=== PATIENT | male | born 1965 | race Two or more races ===

== ENCOUNTER 2022-11-30 12:08 | Emergency (ER) | payer OTHER ==
[~2022-11-30] VITALS: Ht 170.2 cm; Wt 70.8 kg
[2022-11-30] MEDS ORDERED: TRAZODONE HCL100 MG PO (12:43)
[2022-11-30] MEDS ORDERED: ZIPSOR25 MG (12:43)
[2022-11-30 14:10] LABS: HEMATOCRIT 43.1 % (39.0-48.0); HEMOGLOBIN 14.5 g/dL (13-16.00); MEAN CELL VOLUME 93.7 fL (80.0-100.00); MEAN CORPUSCULAR HEMOGLOBIN 31.4 pg (27.00-32.0); MEAN CORPUSCULAR HGB CONC 33.5 g/dl (32.0-36.0); PLATELET COUNT 142 K/uL (150-450); RED CELL DISTRIBUTION WIDTH 13.4 % (11.5-14.5)
[2022-11-30 14:31] LABS: CALCIUM 8.9 mg/dL (8.5-10.1); CREATININE SERUM 1.36 mg/dL (0.70-1.30); GFR 53.82; POTASSIUM 4.65 mEq/L (3.5-5.1)
== END 2022-11-30 15:59 | disposition home or self-care (01) ==
LOC: ER 12:08
PROVIDERS: General Practice
DX: M79.662 Pain in left lower leg (principal); Z88.2 Allergy status to sulfonamides; M32.8 Other forms of systemic lupus erythematosus
CPT/HCPCS: 36415; 93971; 96372; 99284; J1885

== ENCOUNTER 2024-03-02 12:32 | Emergency (ER) | payer OTHER ==
[~2024-03-02] VITALS: Ht 170.2 cm; Wt 69.9 kg
[~2024-03-02 12:32] MED LIST: TRAZODONE HCL100 MG PO; ZIPSOR25 MG
[2024-03-02] MEDS ORDERED: CLONAZEPAM2 MG PO (12:58)
[2024-03-02] MEDS ORDERED: GUAIFENESIN/DEXTROMETHORPHAN 10ML BLIST.PACK PO ONE (15:45)
[2024-03-02] MEDS ORDERED: METHYLPREDNISOLONE SOD SUCC 125 MG VIAL IV ONE (15:45)
[2024-03-02] MEDS ORDERED: IPRATROPIUM/ALBUTEROL SULFATE 3 ML AMPUL.NEB IH SCH (15:45)
[2024-03-02] MEDS ORDERED: ACETAMINOPHEN 500 MG GEL..CAP PO ONE ×2 (16:00→16:16)
[2024-03-02] MEDS ORDERED: 0.9 % SODIUM CHLORIDE 1,000 ML IV ONE (16:15)
[2024-03-02] MEDS ORDERED: METHYLPREDNISOLONE SOD SUCC 125 MG VIAL ONE (16:17)
[2024-03-02] MEDS ORDERED: GUAIFEN/DEXTROMETHORPHAN/PE 10 ML BLIST.PACK PO ONE (16:17)
[2024-03-02] MEDS ORDERED: IPRATROPIUM/ALBUTEROL SULFATE 3 ML AMPUL.NEB IH ONE (17:14)
[2024-03-02 18:24] LABS: HEMATOCRIT 45.4 % (39.0-48.0); HEMOGLOBIN 14.8 g/dL (13-16.00); MEAN CELL VOLUME 95.5 fL (80.0-100.00); MEAN CORPUSCULAR HEMOGLOBIN 31.1 pg (27.00-32.0); MEAN CORPUSCULAR HGB CONC 32.5 g/dl (32.0-36.0); RED BLOOD COUNT 4.76 M/uL (4.00-6.00); RED CELL DISTRIBUTION WIDTH 14.1 % (11.5-14.5)
[2024-03-02 18:42] LABS: PLATELET COUNT 115 K/uL (150-450)
[2024-03-02 18:47] LABS: CALCIUM 9.3 mg/dL (8.5-10.1); CREATININE SERUM 1.3 mg/dL (0.70-1.30); GFR 56.31; POTASSIUM 4.51 mEq/L (3.5-5.1)
[2024-03-02 18:55] LABS: ABG PO2 76.7 mmHg (80-100); ABG pCO2 40.8 mmHg (35-45); BASE EXCESS -0.1 mmol/l; BICARBONATE 24.7 mmol/l (23-25); SaO2 95.2 %; Tco2 25.9 mmol/l; allen test SATISFACTORY; o2 21 %; puncture site RADIAL RIGHT
[2024-03-02] MEDS ORDERED: ZITHROMAX500 MG PO (19:41)
[2024-03-02] MEDS ORDERED: SINGULAIR10 MG PO (19:41)
[2024-03-02] MEDS ORDERED: MEDROLPACK PO (19:41)
[2024-03-02] MEDS ORDERED: IPRATROPIU0.2 MG/1 M IH (19:41)
[2024-03-02] MEDS ORDERED: ALBUTEROL1.25 MG/3 IH (19:41)
[2024-03-02] MEDS ORDERED: TUSSIN DM LIQU118 ML PO (19:41)
[2024-03-02] MEDS ORDERED: MAG HYDROX/ALUMINUM HYD/SIMETH 30 ML BLIST.PACK PO ONE ×2 (19:58→20:00)
[2024-03-02] MEDS ORDERED: LIDOCAINE HCL VISCOUS 20MG/ML BLIST 15ML MM ONE ×2 (19:58→20:00)
== END 2024-03-02 20:10 ==
LOC: ER 12:35
PROVIDERS: General Practice
DX: J06.9 Acute upper respiratory infection, unspecified (principal); Z88.2 Allergy status to sulfonamides; J45.909 Unspecified asthma, uncomplicated; M32.8 Other forms of systemic lupus erythematosus; Z20.822 Contact with and (suspected) exposure to COVID-19
CPT/HCPCS: 36415; 71046; 82803; 94640; 96365; 99284; J3490

== ENCOUNTER 2024-03-05 15:26 | Inpatient (IN) | payer OTHER ==
[~2024-03-05] VITALS: Ht 170.2 cm; Wt 69.9 kg
[~2024-03-05 15:26] MED LIST changes: +ALBUTEROL1.25 MG/3 IH; +CLONAZEPAM2 MG PO; +IPRATROPIU0.2 MG/1 M IH; +MEDROLPACK PO; +SINGULAIR10 MG PO; +TUSSIN DM LIQU118 ML PO; +ZITHROMAX500 MG PO
[2024-03-05] MEDS ORDERED: IPRATROPIUM/ALBUTEROL SULFATE 3 ML AMPUL.NEB IH SCH (18:00)
[2024-03-05] MEDS ORDERED: IPRATROPIUM/ALBUTEROL SULFATE 3 ML AMPUL.NEB IH ONE (18:07)
[2024-03-05 18:15] LABS: HEMATOCRIT 42.8 % (39.0-48.0); HEMOGLOBIN 14.6 g/dL (13-16.00); MEAN CELL VOLUME 92.7 fL (80.0-100.00); MEAN CORPUSCULAR HEMOGLOBIN 31.7 pg (27.00-32.0); MEAN CORPUSCULAR HGB CONC 34.2 g/dl (32.0-36.0); RED BLOOD COUNT 4.62 M/uL (4.00-6.00); RED CELL DISTRIBUTION WIDTH 13.9 % (11.5-14.5)
[2024-03-05 18:18] LABS: PLATELET COUNT 118 K/uL (150-450)
[2024-03-05] MEDS ORDERED: BENZONATATE 200 MG CAPSULE PO ONE (18:30)
[2024-03-05] MEDS ORDERED: CEFTRIAXONE SODIUM 2,000 MG in 0.9 % SODIUM CHLORIDE 100 ML IV SCH (19:38)
[2024-03-05] MEDS ORDERED: AZITHROMYCIN 500 MG in DEXTROSE 5 % IN WATER 250 ML IV SCH (19:38)
[2024-03-05] MEDS ORDERED: ACETAMINOPHEN 500 MG GEL..CAP PO PRN (19:45)
[2024-03-05] MEDS ORDERED: 0.9 % SODIUM CHLORIDE 1,000 ML IV SCH (19:45)
[2024-03-05] MEDS ORDERED: LEVALBUTEROL HCL 1.25 MG/3 ML SOLUTION IH SCH (19:51)
[2024-03-05] MEDS ORDERED: AZITHROMYCIN 500 MG VIAL IV SCH (19:55)
[2024-03-05] MEDS ORDERED: METHYLPREDNISOLONE SOD SUCC 125 MG VIAL IV ONE (20:00)
[2024-03-05] MEDS ORDERED: IPRATROPIUM BROMIDE 0.5 MG/2.5 ML AMPUL.NEB IH SCH (20:00)
[2024-03-05] MEDS ORDERED: TRAZODONE HCL 50 MG TABLET PO SCH (20:06)
[2024-03-05] MEDS ORDERED: CLONAZEPAM 1 MG TABLET PO SCH (20:09)
[2024-03-05] MEDS ORDERED: GUAIFEN/DEXTROMETHORPHAN/PE 10 ML BLIST.PACK PO SCH (21:00)
[2024-03-05] MEDS ORDERED: METHYLPREDNISOLONE SOD SUCC 125 MG VIAL ONE (21:00)
[2024-03-05] MEDS ORDERED: GUAIFEN/DEXTROMETHORPHAN/PE 10 ML BLIST.PACK PO ONE (21:00)
[2024-03-05] MEDS ORDERED: AZITHROMYCIN 500 MG VIAL IV ONE (21:01)
[2024-03-05] MEDS ORDERED: LEVALBUTEROL HCL 1.25 MG/3 ML SOLUTION IH ONE (21:05)
[2024-03-05] MEDS ORDERED: IPRATROPIUM BROMIDE 0.5 MG/2.5 ML AMPUL.NEB IH ONE (21:05)
[2024-03-05 21:17] LABS: ABG PH 7.437 (7.35-7.45); ABG PO2 66.8 mmHg (80-100); BASE EXCESS 0.5 mmol/l; BICARBONATE 24.4 mmol/l (23-25); SaO2 93.7 %; Tco2 25.5 mmol/l; allen test SATISFACTORY; o2 21 %; puncture site RADIAL LEFT
[2024-03-05] MEDS ORDERED: ACETAMINOPHEN 500 MG GEL..CAP PO ONE (21:37)
[2024-03-05 21:51] LABS: INR 1.01; PARTIAL THROMBOPLASTIN TIME 26.5 SECONDS (22.0-34.0)
[2024-03-05 21:56] LABS: ALBUMIN 3.5 gm/dL (3.4-5.0); BILIRUBIN TOTAL 0.38 mg/dL (0.3-1.2); CALCIUM 8.9 mg/dL (8.5-10.1); CREATININE SERUM 1.4 mg/dL (0.70-1.30); GFR 51.69; GLOBULINA 3.9 G/DL (2.4-3.5); POTASSIUM 3.84 mEq/L (3.5-5.1); TOTAL PROTEIN 7.4 gm/dL (6.4-8.2)
[2024-03-05 21:57] LABS: C-REACTIVE PROTEIN 9.4 MG/DL (0.00-0.29)
[2024-03-06 00:40] LABS: PH,URINE 5.5 (5.0-8.0); URINE APPEARANCE Clear; URINE BILIRRUBIN Negative (NEGATIVE); URINE BLOOD Trace; URINE COLOR Yellow; URINE GLUCOSE Negative (NEGATIVE); URINE KETONE Negative (NEGATIVE); URINE LEUKOCYTE Negative; URINE NITRATE Negative; URINE PROTEIN 30 (NEGATIVE); URINE UROBILINOGEN 0.2 E.U./dl
[2024-03-06 00:44] LABS: URINE BACTERIA 7.3 uL (0.0-1933); URINE EPITHELIAL CELLS 0.3 uL (0.0-38.8); URINE RBC 5.7 uL (0.0-20.8); URINE WBC 2.2 uL (0.0-23.2)
[2024-03-06 04:27] VITALS: BP 132/76; O2SAT 98
[2024-03-06 08:19] VITALS: BP 103/59
[2024-03-06] MEDS ORDERED: AZITHROMYCIN 500 MG VIAL IV ONE (08:29)
[2024-03-06] MEDS ORDERED: ENOXAPARIN SODIUM 40 MG/0.4 ML SYRINGE SUBCUTANEO SCH (09:00)
[2024-03-06] MEDS ORDERED: FAMOTIDINE/PF 20 MG in 0.9 % SODIUM CHLORIDE 8 ML IV PUSH SCH (09:00)
[2024-03-06] MEDS ORDERED: METHYLPREDNISOLONE SOD SUCC 40 MG VIAL IV SCH (13:00)
[2024-03-06] MEDS ORDERED: TRAZODONE HCL 50 MG TABLET PO SCH (21:00)
[2024-03-06] MEDS ORDERED: CLONAZEPAM 1 MG TABLET PO SCH (21:00)
[2024-03-06 21:02] VITALS: BP 105/57
[2024-03-07 00:49] VITALS: BP 128/70; O2SAT 98
[2024-03-07 05:13] LABS: HEMATOCRIT 39.7 % (39.0-48.0); HEMOGLOBIN 12.9 g/dL (13-16.00); MEAN CELL VOLUME 94.3 fL (80.0-100.00); MEAN CORPUSCULAR HEMOGLOBIN 30.6 pg (27.00-32.0); MEAN CORPUSCULAR HGB CONC 32.4 g/dl (32.0-36.0); RED BLOOD COUNT 4.21 M/uL (4.00-6.00); RED CELL DISTRIBUTION WIDTH 13.6 % (11.5-14.5)
[2024-03-07 05:22] LABS: PLATELET COUNT 130 K/uL (150-450)
[2024-03-07 05:34] LABS: CALCIUM 8.8 mg/dL (8.5-10.1); CREATININE SERUM 1.34 mg/dL (0.70-1.30); GFR 54.37; POTASSIUM 4.96 mEq/L (3.5-5.1)
[2024-03-07 09:10] VITALS: BP 122/70; O2SAT 96
[2024-03-07] MEDS ORDERED: CODEINE PHOSPHATE/GUAIFENESIN 5 ML ML PO SCH (13:00)
[2024-03-07 18:43] VITALS: BP 152/72
[2024-03-07] MEDS ORDERED: FAMOTIDINE/PF 20 MG/2 ML VIAL ONE (20:30)
[2024-03-07] MEDS ORDERED: FAMOTIDINE/PF 20 MG in 0.9 % SODIUM CHLORIDE 8 ML IV PUSH SCH (21:00)
[2024-03-08 01:33] VITALS: BP 132/69; O2SAT 97
[2024-03-08 08:24] VITALS: BP 105/60; O2SAT 99
[2024-03-08] MEDS ORDERED: PIPERACILLIN/TAZOBACTAM SODIUM 3.375 GM in DEXTROSE 5 % IN WATER 100 ML IV SCH (14:00)
[2024-03-08] MEDS ORDERED: FAMOTIDINE/PF 20 MG/2 ML VIAL ONE (15:18)
[2024-03-08] MEDS ORDERED: VANCOMYCIN HCL 5 MG/ML REDILUIDO IV SCH (17:00)
[2024-03-08 17:53] VITALS: BP 134/71; O2SAT 97
[2024-03-09 00:34] VITALS: BP 155/71
[2024-03-09 13:23] VITALS: BP 126/68
[2024-03-09 15:08] VITALS: BP 144/79; O2SAT 97
[2024-03-09] MEDS ORDERED: FAMOTIDINE/PF 20 MG/2 ML VIAL ONE (15:20)
[2024-03-09] MEDS ORDERED: CODEINE PHOSPHATE/GUAIFENESIN 5 ML ML PO SCH (17:00)
[2024-03-10] MEDS ORDERED: IPRATROPIUM BROMIDE 0.5 MG/2.5 ML AMPUL.NEB IH SCH
[2024-03-10 00:42] VITALS: BP 153/72; O2SAT 97
[2024-03-10 08:40] VITALS: BP 147/68; O2SAT 99
[2024-03-10 09:37] LABS: HEMATOCRIT 43.7 % (39.0-48.0); HEMOGLOBIN 14.6 g/dL (13-16.00); MEAN CELL VOLUME 92.4 fL (80.0-100.00); MEAN CORPUSCULAR HEMOGLOBIN 30.8 pg (27.00-32.0); MEAN CORPUSCULAR HGB CONC 33.4 g/dl (32.0-36.0); PLATELET COUNT 200 K/uL (150-450); RED BLOOD COUNT 4.73 M/uL (4.00-6.00); RED CELL DISTRIBUTION WIDTH 13.7 % (11.5-14.5)
[2024-03-10 10:50] LABS: CREATININE SERUM 1.21 mg/dL (0.70-1.30); GFR 61.17; POTASSIUM 4.33 mEq/L (3.5-5.1)
[2024-03-10] MEDS ORDERED: IPRATROPIUM/ALBUTEROL SULFATE 3 ML AMPUL.NEB IH SCH (13:00)
[2024-03-10 16:21] VITALS: BP 141/66; O2SAT 96
[2024-03-10] MEDS ORDERED: FAMOtidine 20 MG TABLET PO SCH (21:00)
[2024-03-11 00:46] VITALS: BP 146/72
[2024-03-11 09:03] VITALS: BP 155/81; O2SAT 98
[2024-03-11 17:02] VITALS: BP 160/85; O2SAT 97
[2024-03-12 01:26] VITALS: BP 150/79
[2024-03-12 05:10] LABS: HEMATOCRIT 40.2 % (39.0-48.0); HEMOGLOBIN 13.1 g/dL (13-16.00); MEAN CELL VOLUME 93.6 fL (80.0-100.00); MEAN CORPUSCULAR HEMOGLOBIN 30.4 pg (27.00-32.0); MEAN CORPUSCULAR HGB CONC 32.5 g/dl (32.0-36.0); PLATELET COUNT 200 K/uL (150-450); RED BLOOD COUNT 4.29 M/uL (4.00-6.00); RED CELL DISTRIBUTION WIDTH 13.6 % (11.5-14.5)
[2024-03-12 05:45] LABS: ALBUMIN 2.7 gm/dL (3.4-5.0); BILIRUBIN TOTAL 0.32 mg/dL (0.3-1.2); CALCIUM 8.8 mg/dL (8.5-10.1); CREATININE SERUM 1.3 mg/dL (0.70-1.30); GFR 56.31; PHOSPHOROUS 3.8 mg/dL (2.5-4.9); POTASSIUM 4.66 mEq/L (3.5-5.1); TOTAL PROTEIN 5.7 gm/dL (6.4-8.2)
[2024-03-12 05:46] LABS: C-REACTIVE PROTEIN 0.5 MG/DL (0.00-0.29)
[2024-03-12 08:31] VITALS: BP 134/67; O2SAT 99
[2024-03-12] MEDS ORDERED: LACTOBACILLUS ACIDOPHILUS 1 CAP CAP PO SCH (13:00)
[2024-03-12 16:53] VITALS: BP 151/72; O2SAT 98
[2024-03-12] MEDS ORDERED: BENZONATATE 200 MG CAPSULE PO SCH (18:00)
[2024-03-12] MEDS ORDERED: FAMOTIDINE/PF 20 MG/2 ML VIAL IV NR (18:00)
[2024-03-13 01:57] VITALS: BP 129/72
[2024-03-13] MEDS ORDERED: FAMOTIDINE/PF 20 MG/2 ML VIAL IV PUSH SCH (05:00)
[2024-03-13 07:06] LABS: CALCIUM 8.4 mg/dL (8.5-10.1); CREATININE SERUM 1.19 mg/dL (0.70-1.30); GFR 62.36; POTASSIUM 4.29 mEq/L (3.5-5.1)
[2024-03-13 08:57] VITALS: BP 128/58
[2024-03-13] MEDS ORDERED: PHENOL 177 ML BOTTLE MM SCH (13:00)
[2024-03-13 17:34] VITALS: BP 143/74
[2024-03-13] MEDS ORDERED: METHYLPREDNISOLONE SOD SUCC 40 MG VIAL IV SCH (21:15)
[2024-03-14 04:39] LABS: HEMATOCRIT 44.6 % (39.0-48.0); HEMOGLOBIN 14.8 g/dL (13-16.00); MEAN CELL VOLUME 92.5 fL (80.0-100.00); MEAN CORPUSCULAR HEMOGLOBIN 30.8 pg (27.00-32.0); MEAN CORPUSCULAR HGB CONC 33.3 g/dl (32.0-36.0); PLATELET COUNT 218 K/uL (150-450); RED BLOOD COUNT 4.82 M/uL (4.00-6.00); RED CELL DISTRIBUTION WIDTH 13.7 % (11.5-14.5)
[2024-03-14 05:24] LABS: ALBUMIN 2.8 gm/dL (3.4-5.0); BILIRUBIN TOTAL 0.49 mg/dL (0.3-1.2); CALCIUM 8.5 mg/dL (8.5-10.1); CREATININE SERUM 1.35 mg/dL (0.70-1.30); GFR 53.91; GLOBULINA 3.1 G/DL (2.4-3.5); MAGNESIUM 2.1 mg/dL (1.8-2.4); PHOSPHOROUS 3.8 mg/dL (2.5-4.9); POTASSIUM 4.82 mEq/L (3.5-5.1); TOTAL PROTEIN 5.9 gm/dL (6.4-8.2)
[2024-03-14 05:38] LABS: C-REACTIVE PROTEIN 0.62 MG/DL (0.00-0.29)
[2024-03-14 08:46] VITALS: BP 132/75
[2024-03-14] MEDS ORDERED: FAMOtidine 20 MG TABLET PO SCH (09:00)
[2024-03-14] MEDS ORDERED: XOPENEX CO1.25 MG/0. IH (14:12)
[2024-03-14] MEDS ORDERED: IPRATROPIU0.2 MG/1 M IH (14:12)
== END 2024-03-14 13:25 | disposition home or self-care (01) | DRG 194 ==
LOC: ER 15:28 → MEDI 22:06
PROVIDERS: General Practice; Internal Medicine Infectious Disease; Preventive Medicine Public Health & General Preventive Medicine; ADMIT Student in an Organized Health Care Education/Training Program; ATTEND Student in an Organized Health Care Education/Training Program
PROC: BW24ZZZ Computerized Tomography (CT Scan) of Chest and Abdomen (ICD-10-PCS; principal; 2024-03-05)
DX: J18.9 Pneumonia, unspecified organism (principal); J45.901 Unspecified asthma with (acute) exacerbation; R09.02 Hypoxemia; D69.6 Thrombocytopenia, unspecified; J06.9 Acute upper respiratory infection, unspecified